=== PATIENT | male | born 1995 | race Two or more races ===

== ENCOUNTER 2017-04-30 22:08 | Emergency (ER) | payer OTHER ==
[~2017-04-30] VITALS: Ht 165.1 cm; Wt 59.0 kg
--- NOTE | 2017-04-30 22:35 | Emergency Room Report ---
History of Present Illness General Chief Complaint: Laceration Source: Patient Present Illness HPI 21YOM BIBEMS with lacerations to right hand after punching thru glass window. Lacs overlying right pinky knuckle and right index finger knuckle Denies associated weakness to fingers, numbness, tingling, reduced ROM or strength Patient cites "Relationship issues." Denies SI, HI, AVH, psych history. Denies other medical problems Tetanus was updated last year. Allergies: Coded Allergies: No Known Allergies (Unverified , 04/30/17) Patient History Past Medical History: none Past Surgical History: none Pertinent Family History: none Social History: Denies: alcohol use, drug use, smoking Immunizations: UTD Reviewed Nursing Documentation: PMH: Agreed, PSxH: Agreed Nursing Documentation-PMH Past Medical History: No Stated History Review of Systems All Other Systems: negative except mentioned in HPI Physical Exam Vital Signs Date Time Temp Pulse Resp B/P Pulse Ox O2 Delivery O2 Flow Rate FiO2 04/30/17 21:52 97.9 78 16 140/90 98 Room Air Sp02 EP Interpretation: reviewed, normal General Appearance: normal inspection, well appearing, no apparent distress, alert, GCS 15, non-toxic Head: atraumatic ENT: normal ENT inspection, hearing grossly normal, normal voice Neck: normal inspection, full range of motion, supple, no bony tend Respiratory: normal inspection, lungs clear, normal breath sounds, no respiratory distress, no retraction, no wheezing Cardiovascular #1: regular rate, rhythm, no edema Gastrointestinal: normal inspection, normal bowel sounds, non tender, soft, no guarding, no hernia Genitourinary: no CVA tenderness Musculoskeletal: other - Right hand: 1cm linear lac overlying right 5th knuckle. Abrasion to knuckle of right index finger. Strength and ROM intact. Neurologic: normal inspection, alert, oriented x3, responsive, crime lab technician III-XII nml as tested, motor strength/tone normal, speech normal Psychiatric: normal inspection, judgement/insight normal, mood/affect normal Skin: normal inspection, normal color, no rash Procedures Splinting Splinting : Consent: Verbal Pre-Made Type: metal Splint: Right pinky MCP Pre-Proc Neuro Vasc Exam: normal Post-Proc Neuro Vasc Exam: normal Patient Tolerated: Well Complications: None Laceration/Wound Repair Laceration/Wound Repair : Consent: Verbal Wound Location: upper extremity Wound's Depth, Shape: superficial Wound Explored: clean Betadine Prep?: Yes Anesthesia: Lidocaine w/ Epi Wound Debrided: minimal Wound Repaired With: sutures Suture Size/Type: 5:0 Number of Sutures: 3 Layer Closure?: No Sterile Dressing Applied?: Yes Splint Applied?: Yes Sling Applied?: No Patient Tolerated: Well Complications: None Medical Decision Making Diagnostic Impression: Primary Impression: Laceration ER Course Laceration to right knuckle repaired (see procedure note) No tendon or vascular involvement Xray of right hand does NOT show FB Both wounds irrigated with high pressure water irrigation and explored to base depth index MCP and PIP splinted in extension to prevent wound dehiscence Advised return in 10-14 days for suture removal DC home Other X-Ray Diagnostic Results Other X-Ray Diagnostic Results : X-Ray ordered: Right hand # of Views/Limited Vs Complete: 3 View Indication: Other - laceration EP Interpretation: Yes Interpretation: no dislocation, no soft tissue swelling, no fractures, other - No foreign body Impression: No acute disease Interpreting ER Provider: Electronically signed by Dr Veronica Last Vital Signs Date Time Temp Pulse Resp B/P Pulse Ox O2 Delivery O2 Flow Rate FiO2 04/30/17 21:52 97.9 78 16 140/90 98 Room Air Status: improved Disposition: HOME, SELF-CARE GREG VERONICA M.D. Apr 30, 2017 22:35
[2017-04-30] MEDS ORDERED: Lidocaine 1% MPF 10mg/ml 5ml ONE (22:39)
[2017-04-30] MEDS ORDERED: Lidocaine 1% 10mg/ml/EPI 0.01mg/ml 50ml INJ ONE (22:45)
[2017-04-30 23:23] VITALS: BP 140/90
--- NOTE | 2017-05-01 13:11 | Diagnostic Imaging Report ---
Indication: PAIN Technique: 3 views right hand Comparison: none Findings: There is evidence of soft tissue injury of the fifth digit. No acute fractures, bony destruction, dislocations demonstrated. Joint spaces are preserved. Impression: No acute bony trauma This agrees with the preliminary interpretation provided by the emergency room physician
== END 2017-04-30 23:00 | disposition home or self-care (01) ==
LOC: EDBD 22:08 → EMR 22:41
DX: S61.411A Laceration without foreign body of right hand, initial encounter (principal); W25.XXXA Contact with sharp glass, initial encounter; Y92.9 Unspecified place or not applicable
CPT/HCPCS: 12001; 29280; 73130; 99284; Z7502